=== PATIENT | female | born 1995 | race Caucasian/White ===

== ENCOUNTER 2017-04-17 08:00 | Emergency (ER) | payer OTHER ==
[~2017-04-17] VITALS: Ht 149.9 cm; Wt 68.0 kg
[2017-04-17 08:09] VITALS: BP 106/62
== END 2017-04-17 08:46 | disposition home or self-care (01) ==
LOC: ED 08:00
DX: J45.909 Unspecified asthma, uncomplicated (principal)

== ENCOUNTER 2017-05-11 16:46 | Emergency (ER) | payer OTHER ==
[~2017-05-11] VITALS: Ht 149.9 cm; Wt 72.1 kg
[2017-05-11 19:32] VITALS: BP 114/83
== END 2017-05-11 19:32 | disposition home or self-care (01) ==
LOC: ED 16:46
DX: F41.9 Anxiety disorder, unspecified (principal)

== ENCOUNTER 2018-04-14 12:02 | Emergency (ER) | payer OTHER ==
[~2018-04-14] VITALS: Ht 149.9 cm; Wt 75.3 kg
[2018-04-14 12:54] LABS: BASOPHIL % 0.3 % (0-2); PLATELET COUNT 267 x10^3mcL (130-400); RED CELL DISTRIBUTION WIDTH 13.6 % (11.5-14.5)
[2018-04-14 13:37] LABS: CALCIUM 8.9 mg/dL (8.5-10.1); CARBON DIOXIDE 24.7 mmol/L (21-32); CHLORIDE SERUM 107 mmol/L (98-107); CREATININE SERUM 0.7 mg/dL (0.6-1.0); GFR1 > 60 mL/min; GLUCOSE SERUM 98 mg/dL (74-106); POTASSIUM SERUM 3.8 mmol/L (3.5-5.1); SODIUM SERUM 141 mmol/L (136-145)
[2018-04-14 13:43] LABS: ALKALINE PHOSPHATASE 90 U/L (46-116); ALT/SGPT 21 U/L (14-59); AMYLASE 93 U/L (25-115); AST/SGOT 13 U/L (15-37); BILIRUBIN TOTAL 0.6 mg/dL (0.20-1.00); LIPASE 118 IU/L (73-393); TOTAL PROTEIN, SERUM 7.6 g/dL (6.4-8.2)
[2018-04-14 16:02] VITALS: BP 117/69
== END 2018-04-14 16:02 | disposition home or self-care (01) ==
LOC: ED 12:02
PROVIDERS: Emergency Medicine
DX: E86.0 Dehydration (principal); J45.909 Unspecified asthma, uncomplicated
CPT/HCPCS: 83880; 87046; 87046-59; J2405; J7030